=== PATIENT | female | born 1995 | race African-American/Black ===

== ENCOUNTER 2017-01-07 06:14 | Day surgery (SDC) | payer OTHER ==
[~2017-01-07] VITALS: Ht 172.7 cm; Wt 187.8 kg
[2017-01-07 06:47] VITALS: BP 134/80
[2017-01-07 11:35] VITALS: BP 132/74
== END 2017-01-07 12:30 | disposition home or self-care (01) ==
LOC: DS 06:14 → GI 07:30 → DS 07:30 → OR 07:30 → DS 12:30
PROVIDERS: Internal Medicine Gastroenterology
PROC: 0DBB8ZX Excision of Ileum, Via Natural or Artificial Opening Endoscopic, Diagnostic (ICD-10-PCS; 2017-01-07)
PROC: 0DBL8ZX Excision of Transverse Colon, Via Natural or Artificial Opening Endoscopic, Diagnostic (ICD-10-PCS; 2017-01-07)
PROC: 0DBN8ZX Excision of Sigmoid Colon, Via Natural or Artificial Opening Endoscopic, Diagnostic (ICD-10-PCS; 2017-01-07)
PROC: 0DBF8ZX Excision of Right Large Intestine, Via Natural or Artificial Opening Endoscopic, Diagnostic (ICD-10-PCS; 2017-01-07)
PROC: 0DBG8ZX Excision of Left Large Intestine, Via Natural or Artificial Opening Endoscopic, Diagnostic (ICD-10-PCS; 2017-01-07)
PROC: 0DBH8ZX Excision of Cecum, Via Natural or Artificial Opening Endoscopic, Diagnostic (ICD-10-PCS; principal; 2017-01-07 07:30)
DX: K63.89 Other specified diseases of intestine (principal); R19.7 Diarrhea, unspecified; E11.9 Type 2 diabetes mellitus without complications; E66.01 Morbid (severe) obesity due to excess calories; Z68.44 Body mass index [BMI] 60.0-69.9, adult
CPT/HCPCS: 45378; 88344; J1200; J1610; J2250; J2310; J3010; J3490